=== PATIENT | female | born 1945 | race Caucasian/White ===

== ENCOUNTER 2020-10-19 08:30 | Emergency (ER) | payer MEDICARE, SELFPAY | END 2020-10-19 08:40 | disposition left against medical advice (07) | LOC: ANHED 09:00 | DX: Z53.21 Procedure and treatment not carried out due to patient leaving prior to being seen by health care provider (principal) | CPT/HCPCS: 99199 ==

== ENCOUNTER 2021-03-13 09:00 | Outpatient (RCR) | payer MEDICARE, SELFPAY ==
--- NOTE | 2020-12-21 09:19 | PTOPEVAL ---
PHYSICAL THERAPY EVALUATION AND PLAN OF CARE 12-21-20 Thank you for referring Arminda Vincent to [facility], for the diagnosis of lumbar pain and radiculopathy. Mrs. Vincent is scheduled to be seen for therapy? 2 x/week for 4 weeks, treatment plan includes aquatic exercises. Please review, sign, date and return this plan of care [facility]. I agree with and certify that the following plan of care is medically necessary. Referring Physician Date Attending Provider: ROXIE Orozco *PT Outpatient Evaluation 12/21/20 08:10 NIKKI (Rec: 12/21/20 09:19 NIKKI [id number]) Assessment Status Evaluation Outpatient Past Medical History Past Medical History Source of Past Medical History Patient Neurological History Hx Neurological Disorders No Significant History Cardiovascular History Hx Cardiac Disorders No Significant History Respiratory History Hx Respiratory Disorders No Significant History Gastrointestinal History Hx Other Gastrointestinal Disorders Yes: irritation of stomach due to pain meds Genitourinary History Hx Other Genitourinary Disorders Yes: urinary incontinence Musculoskeletal History Hx Arthritis Yes: all over- most joints sore and tender Hx Back Pain Yes: chronic back pain Hx Orthopedic Surgery Yes: B TKR Endocrine History Hx Endocrine Disorders No Significant History HEENT History Hx HEENT Disorders No Significant History Other History Hx Other Medical Conditions Yes: have had COVID vaccine Evaluation Information Problem Diagnosis low back pain, radicular Onset September 25, 2020 Subjective Information history of chronic back pain, Query Text:As Reported By Patient/ but in September started more on L Family side, into butt and L foot numb and worse than usually is ; 3 steroid injections since September,have helped pain; pain has decreased since September; doing some light stretching exercises at home: on back: trunk rot, piriformis stretch, knee/chest stretch; Diagnostic Tests MRI For This Problem Yes: bulging disc L 4-5; Previous Treatments Previous Treatments For This Problem no recent PT for back Prior Level of Function Activity Level (Last 3 Months) Occupation retired Hand Dominance Right Activity of Daily Living Ability Independent Indoor/Home Mobility Independent Community Mobility Independent Stairs Ability Independent Functional Cognition (Planning, Shopping Independent , Taking Medications) Cooking Yes Mara
--- NOTE | 2021-01-17 11:46 | PTOPEVAL ---
PHYSICAL THERAPY REEVALUATION AND UPDATED PLAN OF CARE 01-17-21 Refer to the clinical summary below, for her status today, compared to the initial evaluation. The goals were partially achieved. Continue PT 2x/week for 4 weeks, with treatments on land and in the water. Thank you for referring Arminda Vincent to [facility]. Please review, sign, date and return this updated plan of care [facility]. I agree with and certify that the following plan of care is medically necessary. Referring Physician Date Attending Provider: Sherry Roman, [employer] COURTESY CLERK-BC Document 01/17/21 11:00 NIKKI (Rec: 01/17/21 11:46 NIKKI [id number]) Assessment Status Reevaluation Subjective Information Arminda reports: doing a Query Text:As Reported By Patient/ little better in that can move Family better; activity is about the same, but feel better; like water exercises, not as sore after them; Pain Assessment Timing of Pain Assessment Timing of Pain Assessment Assessment Pain Scale Pain Scale Used Numeric (1 - 10) Self Report Pain Assessment Bilateral Back Reported Pain Level 3 Radicular Pain Location L LE-top toes little numb;no thigh or calf pain/numbness; Pain Frequency Chronic,Continuous Other Pain Description grabbing pain; Lowest Pain Intensity 2 Greatest Pain Intensity 4 Pain Aggravating Factors Sitting,Weight Bearing/ Standing Other Pain Aggravating Factors sit 30 min/walk 10-15 min; Pain Behaviors Anxious,Grimacing,Guarding Pain Score Pain Score 3: Self Report Additional Pain Score Comments Oswestrt self assessment functional activity score of 54% limitation reported sleeping tolerance- awaken 0-3x/night and walking tolerance 10-15 minutes; Interventions Used Interventions Used By Clinicians Education,Exercise Pain Relief Interventions Used By Ice,Inactivity/Rest,Lying Patient Supine Other Alleviating Interventions taking celebrex- think it helps Cervical and Lumbar ROM Lumbar ROM Lumbar Comments standing trunk ROM: rotation to R increase R lumbar pain/ rotation L no increase pain; supine R LE: hip flexion- increase little more back pain and ER- increase pain in lateral hip and back supine L LE: hip flexion- no
--- NOTE | 2021-02-14 09:47 | PTOPEVAL ---
PHYSICAL THERAPY REEVALUATION AND UPDATED PLAN OF CARE 02-14-21 Refer to the clinical summary below for her status today, compared to the last reeval. PT is to continue treatment 0-2x/week for 4 weeks. She will be out of town for one week of this time frame. Thank you for referring Arminda Vincent to [facility].? Please review, sign, date and return this updated plan of care [facility]. I agree with and certify that the following plan of care is medically necessary. Referring Physician Date Attending Provider: Sherry Roman APRN- Document 02/14/21 08:55 NIKKI (Rec: 02/14/21 09:47 NIKKI [id number]) Assessment Status Re-evaluation Subjective Information Arminda reports: is doing better; Query Text:As Reported By Patient/ electrical stim really has Family helped her pain; is doing home exercises, wants to be able to walk and able to do more, is cautious with lifting and moving- protecting her back and do not want to hurt it again and wants to continue therapy; Pain Assessment Timing of Pain Assessment Timing of Pain Assessment Assessment Pain Scale Pain Scale Used Numeric (1 - 10) Self Report Pain Assessment Bilateral Back Reported Pain Level 2 Pain Description Dull Radicular Pain Location R and L lateral hips; no leg pain Pain Frequency Chronic,Continuous Other Pain Description dull pain that is always there ; if do too much, gets to be sharp pain Lowest Pain Intensity 2 Greatest Pain Intensity 3 Pain Aggravating Factors Exercise/Activity,Walking, Weight Bearing/Standing Other Pain Aggravating Factors do not vacuum or lift Pain Score Pain Score 2: Self Report Additional Pain Score Comments Oswestry self assessment functional score % limitation reported walking-standing tolerance 10-15 minutes/ with sleeping awaken 0-3 x/night due to pain; home exercises are easier to do--stronger and not hurt as much to do them; discussed home TENS Interventions Used Interventions Used By Clinicians Education,Electrical Stimulation Pain Relief Interventions Used By Ice,Inactivity/Rest,Medication Patient ,Position Change Other Alleviating Interventions take advil, Cervical and Lumbar ROM
--- NOTE | 2021-03-13 09:50 | PTOPEVAL ---
PHYSICAL THERAPY DISCHARGE 03-13-21 Refer to the clinical summary below, for her status today, compared to the last reevaluation. The goals were partially achieved. Discharge PT services. She is to continue with her home exercises. Thank you for referring Arminda Vincent to [facility].? Please review, sign, date and return this Discharge [facility]. I agree with and certify that the following plan of care is medically necessary. Referring Physician Date Attending Provider: Sherry Roman, RAJAN- Document 03/13/21 09:05 NIKKI (Rec: 03/13/21 09:50 NIKKI [id number]) PT Discharge Subjective Information Mrs. Vincent reports: back is Query Text:As Reported By Patient/ still bothering her if do too Family much it hurts; am able to walk farther before it hurts, 5-10 minutes then hurts; been doing exercises and watching posture and avoiding stooping over; sees pain dr next week; Pain Assessment Timing of Pain Assessment Timing of Pain Assessment Assessment Pain Scale Pain Scale Used Numeric (1 - 10) Self Report Pain Assessment Bilateral Back Reported Pain Level 2 Pain Description Dull,Sharp,Tightness Pain Frequency Chronic,Continuous Other Pain Description aggravating constant hurting; R lumbar- sacral area Lowest Pain Intensity 2 Greatest Pain Intensity 3 Pain Score Pain Score 2: Self Report Additional Pain Score Comments Oswestry self assessment functional score of 48% limitation in activity have a home TENS unit, have not used lately, said it is not very strong--discussed may need a new battery; reinforced activity/rest balance for pain control--pt understands and is doing, but frustrated that she has to stop and has pain with activity; has been doing home and some outside tasks; Interventions Used Interventions Used By Clinicians Education Pain Relief Interventions Used By Ice,Inactivity/Rest,Medication Patient ,Position Change Other Alleviating Interventions take advil only PRN; sit and rest; Lower Extremity Range of Motion General Lower Extremity Range of Motion Gross Lower Extremity Range of Motion supine R and L hip flexion, IR Comments and ER without an increase in
== END 2021-03-13 15:39 | disposition home or self-care (01) ==
LOC: ANHPT 09:00
PROVIDERS: Visit Provider Nurse Practitioner Adult Health
DX: M54.16 Radiculopathy, lumbar region (principal)
CPT/HCPCS: 97014; 97110; 97113; 97140; 97161; G0283

== ENCOUNTER → 2021-04-06 10:08 | Outpatient (CLI) | payer MEDICARE, SELFPAY ==
--- NOTE | ~2021-04-06 | MM_ITS ---
EXAMINATION: MM screening fili BI w kayy HISTORY: Screening mammogram TECHNIQUE: Craniocaudal and mediolateral oblique 3-D tomosynthesis images were obtained and synthetic 2-D images were generated. CAD analysis was submitted and interpreted. COMPARISON: 07/05/2019, 05/12/2017, 04/09/2016 bilateral digital screening mammogram examinations BREAST PARENCHYMAL COMPOSITION: The breasts are almost entirely fatty. FINDINGS: Chronic stable bilateral intramammary lymph nodes. There is no evidence of suspicious mass, calcification, or architectural distortion to suggest malignancy in either breast. There has been no suspicious interval change. IMPRESSION: 1. No mammographic evidence of malignancy. 2. Recommend routine screening mammography in one year. BI-RADS Category 2: Benign finding(s). Reviewed, dictated and finalized at location A.
== END ==
PROVIDERS: Visit Provider Obstetrics & Gynecology Gynecology
DX: Z12.31 Encounter for screening mammogram for malignant neoplasm of breast (principal)
CPT/HCPCS: 77063; 77067

== ENCOUNTER 2021-11-02 08:26 | Outpatient (CLI) | payer MEDICARE, SELFPAY | END 2021-11-02 08:27 | disposition home or self-care (01) | LOC: ANHSURGERY 08:29 | PROVIDERS: Visit Provider Obstetrics & Gynecology Gynecology | DX: Z01.818 Encounter for other preprocedural examination (principal) | CPT/HCPCS: 36415; 85014; 85018; 86850; 86900; 86901 ==

== ENCOUNTER 2021-11-12 00:52 | Day surgery (SDC) | payer MEDICARE, SELFPAY ==
[2021-11-01 13:08] VITALS: BMI 35.2
--- NOTE | 2021-11-01 13:20 | PC.NURSE ---
Report to the Outpatient Waiting Room, entrance under the green pavilion located off [facility], at time _1030_ on date _11/12/21_. OR Time: _0830_. - You and your visitor will be asked a series of questions to screen for COVID 19 for your protection. - A mask is required within the hospital. One visitor will be allowed to accompany the patient into the hospital. Patients visitor will be instructed to remain with patient at all times or leave the building. We will allow the visitor to come back to the postoperative area when patient is ready. Preoperative COVID Testing Requirements: none Patients may have clear liquids (water, carbonated beverages, clear teas, apple juice) until 3 hours prior to surgery 11117 am) with a maximum of 20 ounces. - No food from midnight until time of surgery Take the following medications with a SIP of water the morning of surgery: _WELLBUTRIN_ Medications to discontinue _ADVIL PER DR. NEVES'S INSTRUCTIONS_ Medications to discontinue per ANESTHESIA - _ALL VITAMINS 3 DAYS PRIOR TO SURGERY, Date to take last dose_11/08/21_ Please no make-up, nail welsh, hairspray, perfume, deodorant, or body powder the day of surgery. No jewelry (including any body piercings) or valuables the day of surgery, leave them at home. Please take a shower or bath the night before, or the morning of, surgery with an antibacterial soap. Wear comfortable, loose fitting clothing. Children are encouraged to wear pajamas. - Jewelry must be removed prior to entering the operating room. Rings and piercings that are not removed may be cut off. - The hospital will not accept responsibility for valuables. - Please leave all valuables, including medications, at home the day of surgery. If you are going home after surgery, a licensed delivery driver assistant must drive you home. - NO public transportation without another adult. - We recommend that an adult stay with you for 24 hours following discharge. - We also recommend that you do not drive, make important decision, drink alcoholic beverages, or take any drugs that were not prescribed by your health care provider for at least 24 hours after your discharge time. Follow any additional instructions given to you from your surgeon. Telephone instructions given to __PT and asked if any additional questions and then verbalized understanding. Patient advised to call surgeon office or pre surgery nurse liaisonADILENE [phone] if any additional questions.
[2021-11-12] VITALS (13 sets, daily range): BP systolic 115–139; BP diastolic 60–91; PULSE 70–78; RESP 12–20; TEMP 36.3–37.1; O2SAT 97–100
--- NOTE | 2021-11-12 06:45 | P.PNAN_ITS ---
Anes - Initial Pre Proc Eval Procedure: Operation Date: 11/12/21 08:30 Proposed Procedures p Anterior Vaginal Repair - Brook Segura MD Date/Time: 11/12/21 06:45 Surgeon: Brook Segura MD Pre Op Diagnosis: cystocele Patient Data Age: 76 Gender: F Height: 1.63 m Weight: 93.18 kg Allergies Allergy/AdvReac Type Severity Reaction Status Date / Time No Known Allergies Allergy Verified 11/01/21 13:03 Home Medications Medication Instructions Recorded Confirmed Type Colace 1 cap DAILY PRN 11/01/21 11/01/21 History bupropion HCl [Wellbutrin XL] 150 mg PO QAM 11/01/21 11/01/21 History calcium carbonate-vitamin D3 1 tablet PO QAM 11/01/21 11/01/21 History [Calcium + D] ergocalciferol (vitamin D2) 1,250 mcg DAILY 11/01/21 11/01/21 History fexofenadine [Jazmin Allergy] 180 mg PO DAILY PRN 11/01/21 11/01/21 History ibuprofen [Advil] 200 mg PO BID PRN 11/01/21 11/01/21 History pantoprazole 40 mg PO DAILY PRN 11/01/21 11/01/21 History Patient hx anesthesia problems: none Family hx anesthesia problems: none Results Review: All pre-operative results and documents have been reviewed as part of the pre-operative evaluation. [facility] Past Medical History Medical History (Updated 11/09/21 @ 15:03 by Avi Wills DO) Chronic back pain GERD (gastroesophageal reflux disease) Osteoarthritis Surgical History Surgical History (Updated 11/09/21 @ 15:03 by Avi Wills DO) History of cholecystectomy History of hysterectomy History of umbilical hernia repair Social History Social History Smoking status: Never smoker Second hand tobacco smoke exposure: No Alcohol intake: never Substance use: never Substance use type: does not use Living arrangements: with family Additional living arrangements comments: PT LIVES WITH SPOUSE - [facility]EL [facility] care concerns: No Anes - Eval Final PreProcedure Day of Procedure 11/12/21 06:45 Patient weight: obese Heart: regular rate and rhythm Lungs: clear to auscultation and normal air movement Airway: Mallampati scale class III Neurological: alert and oriented Last oral intake: >/= 8 hours ASA classification: II Emergent: no Anesthetic plan: proceed Anesthesia type and monitoring: general LMA and standard monitoring Results Review: All pre-operative results and documents have been reviewed as part of the pre-operative evaluation. Informed Consent: The patient's anesthetic plan and its attendant risks and benefits were discussed with the patient/family/POA. Questions were solicited and answers provided to the satisfaction of the patient/family/POA.
[2021-11-12] MEDS: ACETAMINOPHEN 500 MG TABLET 1000 MG PO (06:49)
[2021-11-12] MEDS: KETOROLAC 15 MG/ML VIAL (*BKC) IV PUSH (06:50)
[2021-11-12] MEDS: LACTATED RINGERS 1,000 ML 30 ML IV CONT (06:50)
--- NOTE | 2021-11-12 07:05 | WPDHPUPDATE1 ---
History and Physical Update Update Date/Time: 11/12/21 07:05 History and Physical has been reviewed, including an updated exam of the patient. There are NO changes in the patient's condition. Risks, benefits, and alternatives have been discussed and questions answered. Patient agrees to proceed with procedure.
--- NOTE | 2021-11-12 07:05 | PM.HPGS ---
History of Present Illness History of Present Illness Consent: Risks, benefits, and alternatives have been discussed and questions answered. Patient agrees to proceed with procedure. Chief complaint: cystocele Narrative: Arminda Vincent is a 76 year old female with symptomatic cystocele. Patient initially tried a pessary of 2 different styles but they would not remain in place. Patient underwent urodynamics which revealed no genuine stress incontinence therefore the patient wishes to proceed with anterior vaginal repair for her cystocele. Risks of infection, bleeding, injury to internal organs (bladder and ureters), anesthesia, and DVT were reviewed. It was discussed that even though supported urodynamics did not reveal incontinence, surgery could reveal stress incontinence. Patient does have overactive bladder and has done well for several years on [facility]. Patient voices understanding and agrees to proceed with the surgery. Patient did receive medical clearance from her primary physician. Review of Systems Gastrointestinal: Gastrointestinal: Reports heartburn Genitourinary: Genitourinary: Reports vaginal dryness Musculoskeletal: Musculoskeletal: Reports back pain PMFSH Past Medical History Medical History (Updated 11/12/21 @ 07:12 by Brook Segura MD) Chronic back pain GERD (gastroesophageal reflux disease) Osteoarthritis Surgical History Surgical History (Updated 11/12/21 @ 07:11 by Brook Segura MD) History of cholecystectomy And repair of umbilical hernia History of hysterectomy Total vaginal hysterectomy 1991 secondary to fibroids History of total bilateral knee replacement The right in 2012 and the left in 2016 History of umbilical hernia repair Social History Social History Smoking status: Never smoker Second hand tobacco smoke exposure: No Alcohol intake: never Substance use: never Substance use type: does not use Living arrangements: with family Additional living arrangements comments: PT LIVES WITH SPOUSE - [facility] Spiritual care concerns: No Meds Home Medications and Allergies Home Medications Medication Instructions Recorded Confirmed Type Colace 1 cap DAILY PRN 11/01/21 11/01/21 History bupropion HCl [Wellbutrin XL] 150 mg PO QAM 11/01/21 11/01/21 History calcium carbonate-vitamin D3 1 tablet PO QAM 11/01/21 11/01/21 History [Calcium + D] ergocalciferol (vitamin D2) 1,250 mcg DAILY 11/01/21 11/01/21 History fexofenadine [Jazmin Allergy] 180 mg PO DAILY PRN 11/01/21 11/01/21 History ibuprofen [Advil] 200 mg PO BID PRN 11/01/21 11/01/21 History pantoprazole 40 mg PO DAILY PRN 11/01/21 11/01/21 History Allergies Allergy/AdvReac Type Severity Reaction Status Date / Time No Known Allergies Allergy Verified 11/01/21 13:03 Exam Const: General: healthy appearing and alert Orientation/consciousness: patient oriented x3 Resp: Effort & Inspection: normal respiratory effort Auscultation: clear to auscultation bilaterally Cardio: Rate: regular rate Rhythm: regular rhythm GI: GI Palp: Yes Soft to palpation, No Tenderness to palpation present (GI) and No Palpable mass present : External Female Exam: normal external appearance Speculum Exam - Vagina: normal vaginal discharge and other (Third-degree cystocele) Speculum Exam - Cervix: Cervix absent Bimanual exam- vagina & uterus: uterus absent Bimanual Exam- Adnexa, other: normal adnexae and No adnexal tenderness Neuro: General: patient oriented x3 Assessment and Plan Assessment and plan (1) Cystocele: Status: Acute Assessment and Plan: Plan is to proceed with anterior vaginal repair
--- NOTE | 2021-11-12 07:17 | WPDHPUPDATE1 ---
History and Physical Update Update Date/Time: 11/12/21 07:17 History and Physical has been reviewed, including an updated exam of the patient. There are NO changes in the patient's condition. Risks, benefits, and alternatives have been discussed and questions answered. Patient agrees to proceed with procedure.
[2021-11-12] MEDS: ceFAZolin 2 GM/D5W 50 ML 2 GM/50 ML BAG IVPB (07:25)
[2021-11-12] MEDS: LIDO 1%/EPINEPHRINE 1:100,000 50 ML VIAL 10 ML INFILTRATE (07:25)
--- NOTE | 2021-11-12 08:21 | W.PM.PROC2 ---
Procedure Note - Detailed Date of Procedure 11/12/21 Pre-op Diagnosis cystocele Post-op Diagnosis Same Procedure Performed Anterior vaginal repair Surgeon Brook Segura MD Anesthesia General Findings 3rd degree cystocele Description of Procedure The patient was taken to the operating room and placed under anesthesia in the dorsal lithotomy position. She was prepped and draped in the usual sterile fashion. The short weighted speculum was placed posteriorly. The base of the cystocele was grasped at 5 and 7:00 with Allis clamps. The intervening tissue was incised with a scalpel. The midline vaginal tissue is injected with 1% lidocaine with epinephrine. The midline vaginal tissue was dissected off the cystocele using sharp and blunt dissection. The edges of the vaginal mucosa are grasped with Allis clamps as the mucosa is incised. Once the apex was reached to a single clamp was placed in the midline. The lateral vaginal mucosa was dissected off the cystocele using sharp and blunt dissection. The cystocele was reduced using 0 Ethibond horizontal mattress sutures in an interrupted fashion. Once the cystocele was reduced, the excess vaginal mucosa is excised using Metzenbaum scissors. The vaginal mucosa was then closed using 0 Vicryl in a running locked fashion. Vaginal packing coated with Premarin cream was then placed. Francis catheter was left in place. The patient is awakened from anesthesia and taken to recovery in stable condition. Sponge, needle, and instrument counts are correct per the OR staff. Estimated Blood Loss 25 Drains Yes (Francis catheter) Packing Yes (Vaginal) Pathology None sent Complications No immediate complications Condition Stable Disposition PACU
[2021-11-12] MEDS: DEXTROSE 5%/LACTATED RINGERS 1,000 ML 125 ML IV CONT (09:54)
--- NOTE | 2021-11-12 10:52 | ADMGEN ---
0945-This patient, Arminda Vincent, was admitted to OB 2nd Floor Room 289-00. Patient/family oriented to hospital policies and general routines including ID bracelet, bed and alarms, visiting hours, pain management, procedures, bathroom and other care routines, personal items, smoking policy, room service/diet, and visiting hours. Information on how to activate the Rapid Response Team has been discussed. Patient/Family are encouraged to report perceived risks to care and to ask questions if they do not understand what they are told or what they should do.
[2021-11-12] MEDS: IBUPROFEN 600 MG TABLET PO ×2 (14:32→21:20)
[2021-11-13] MEDS: HYDROcodone/acetaminophen (*CRX) 5-325 MG TABLET 1 TAB PO (01:00)
[2021-11-13 04:30] VITALS: BP 103/51; PULSE 73; RESP 16; TEMP 36.9; O2SAT 98
--- NOTE | 2021-11-13 07:21 | PM.GYNPNOP ---
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 Post-Op Subjective Date/time seen: 11/13/21 07:21 Subjective: patient reports feeling better, patient has no complaints and pain is well controlled Exam Narrative: abdomen soft, nt 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 SUPERVISOR - PN: Obj Data Vital Signs Vital Signs: Vital Signs - 24 hr 11/12/21 08:24 11/12/21 08:30 11/12/21 08:45 Temperature 97.4 F L Pulse Rate 78 70 76 Respiratory Rate 20 13 13 Blood Pressure 133/79 134/70 116/91 H Pulse Oximetry 100 100 100 11/12/21 09:00 11/12/21 09:15 11/12/21 09:25 Temperature Pulse Rate 75 73 72 Respiratory Rate 12 15 15 Blood Pressure 127/72 139/74 135/72 Pulse Oximetry 98 97 100 11/12/21 10:00 11/12/21 11:28 11/12/21 14:44 Temperature 97.3 F L Pulse Rate 72 72 74 Respiratory Rate 18 18 18 Blood Pressure 135/67 Pulse Oximetry 98 98 99 11/12/21 14:46 11/12/21 19:15 11/12/21 23:15 Temperature 98.4 F 98.1 F 98.8 F Pulse Rate 74 73 75 Respiratory Rate 18 16 16 Blood Pressure 124/62 115/60 118/60 Pulse Oximetry 99 97 97 11/13/21 04:30 Temperature 98.4 F Pulse Rate 73 Respiratory Rate 16 Blood Pressure 103/51 L Pulse Oximetry 98 Intake/Output Intake/Output: Intake & Output 11/10/21 11/11/21 11/12/21 11/13/21 23:59 23:59 23:59 23:59 Intake Total 2807 Output Total 3226 900 Balance -418 -900 Meds/Results Medications: Active Medications Generic Name Dose Route Start Last Admin Trade Name Freq PRN Reason Stop Dose Admin Hydrocodone Bitart/Acetaminophen 1 tab 11/12/21 09:26 11/13/21 01:00 Hydrocodone/Acetaminophen (*Crx) 5-325 Mg Tablet PO 1 tab Q3H PRN Administration Pain Rated 5 or Less Hydrocodone Bitart/Acetaminophen 1 tab 11/12/21 09:26 Hydrocodone/Acetaminophen (*Crx) 10-325 Mg Tablet PO Q3H PRN Pain Rated 6 or Greater Bupropion HCl 150 mg 11/12/21 10:00 11/12/21 09:58 Bupropion Hcl Xl (24 Hr) 150 Mg Tabcr PO Not Given QAM BRUCE Docusate Sodium 1 mg 11/12/21 09:36 Docusate Sodium 100 Mg Capsule BY MOUTH DAILY PRN Constipation Ergocalciferol 50,000 unit 11/12/21 10:00 11/12/21 14:27 Ergocalciferol 50,000 Unit Capsule BY MOUTH Not Given Mo@0900 BRUCE Dextrose/Lactated Ringer's 1,000 mls @ 125 mls/hr 11/12/21 09:26 11/13/21 04:32 Dextrose 5%/Lactated Ringers IV CONT Not Given .Q8H BRUCE Ibuprofen 600 mg 11/12/21 09:26 11/12/21 21:20 Ibuprofen 600 Mg Tablet PO 600 mg Q6H PRN Administration Cramping Ketorolac Tromethamine 30 mg 11/12/21 09:26 Ketorolac 30 Mg/Ml Vial (*Bkc) IV PUSH 11/17/21 09:25 Q6H PRN Pain Rated 4-6 Loratadine 180 mg 11/12/21 09:37 Loratadine 10 Mg Tablet PO DAILY PRN CONJESTION Naloxone HCl 0.1 mg 11/12/21 09:26 Naloxone Hcl 0.4 Mg/Ml Vial IV PUSH Q2M PRN Respiratory rate less than 10 Ondansetron HCl 4 mg 11/12/21 09:26 Ondansetron Inj 4 Mg/2 Ml Vial IV PUSH Q6H PRN Nausea And Vomiting Pantoprazole Sodium 40 mg 11/12/21 10:00 Pantoprazole 40 Mg Tablet PO DAILY PRN Acid Reflux Simethicone 80 mg 11/12/21 09:26 Simethicone 80 Mg Tab.Chew PO Q2H PRN Gas
--- NOTE | 2021-11-13 07:22 | PM.DS ---
DS: Admitting Diagnosis Discharge Date 11/13/21 Admitting Diagnosis cystocele DS: Discharge Diagnosis Discharge Diagnosis (1) Cystocele: Status: Acute Assessment and Plan: s/p anterior vaginal repair DS: Summary Hospital Course Reason for hospitalization: post op care Hospital Course: Patient tolerating diet, voiding, and ambulating well. DC home. Status at Discharge Functional status at discharge: independent ambulation Overall status at discharge: patient is progressing back to baseline Time Spent with Patient Time attestation: Total time spent providing and/or coordinating discharge services: Discharge Plan Discharge Patient Disposition: Home, Self-Care Discharge Instructions: pelvic rest Stand Alone Forms: General Discharge Instructions Follow-up/Referrals: Brook Segura MD [Physician] - Discharge Medications: Continued bupropion HCl [Wellbutrin XL] 150 mg tablet extended release 24 hr 150 mg PO QAM RF: 0 calcium carbonate-vitamin D3 600 mg-5 mcg (200 unit) Tablet 1 tablet PO QAM RF: 0 ibuprofen 100 mg Tablet 200 mg PO BID PRN (Reason: Pain) RF: 0 pantoprazole 40 mg tablet,delayed release (DR/EC) 40 mg PO DAILY PRN (Reason: Acid Reflux) RF: 0 ergocalciferol (vitamin D2) 1,250 mcg (50,000 unit) capsule 1,250 mcg DAILY RF: 0 Colace 1 cap DAILY PRN (Reason: Constipation) RF: 0 fexofenadine [Jazmin Allergy] 180 mg Tablet 180 mg PO DAILY PRN (Reason: CONJESTION) RF: 0
[2021-11-13 08:15] VITALS: BP 117/74; PULSE 76; RESP 16; TEMP 36.6; O2SAT 97
[2021-11-13] MEDS: PANTOPRAZOLE 40 MG TABLET PO (08:28)
[2021-11-13] MEDS: buPROPion HCL XL (24 HR) 150 MG TABCR PO (08:28)
[2021-11-13] MEDS: IBUPROFEN 600 MG TABLET PO (08:30)
--- NOTE | 2021-11-13 09:43 | WPDANESPN ---
Anes - Prog Note Post-Op Date/Time: 11/13/21 09:43 Cardiovascular status: normal Respiratory status: normal Airway patency: baseline Post-Op hydration status: normal Vital Signs: Last Vital Signs Temp 98 F 11/13/21 08:15 Pulse 76 11/13/21 08:15 Resp 16 11/13/21 08:15 BP 117/74 11/13/21 08:15 Pulse Ox 97 11/13/21 08:15 Pain Score (VAS): 2 I/O: Intake & Output 11/12/21 11/13/21 11/13/21 23:59 07:59 15:59 Intake Total 1187 Output Total 825 1150 Balance 362 -1150 Post-procedural complaints: none Patient Feedback: Patient satisfied with anesthetic care.
[2021-11-13] MEDS: ACETAMINOPHEN 325 MG TABLET PO ×2 (12:44→12:45)
== END 2021-11-13 12:55 | disposition home or self-care (01) ==
LOC: ANHSURGERY 06:12 → ANHOB2 09:30
PROVIDERS: Visit Provider Obstetrics & Gynecology Gynecology
PROC: (CPT 57260; principal; 2021-11-12 08:30)
DX: N81.10 Cystocele, unspecified (principal); K21.9 Gastro-esophageal reflux disease without esophagitis; E66.9 Obesity, unspecified; Z68.36 Body mass index [BMI] 36.0-36.9, adult
CPT/HCPCS: 57240; 99199; A9270; J0690; J1100; J1885; J2405; J2704; J3010; J7120; J7121

== ENCOUNTER → 2022-02-28 09:40 | Outpatient (CLI) | payer MEDICARE, SELFPAY ==
--- NOTE | ~2022-02-28 | MR_ITS ---
EXAMINATION: MR thoracic spine wo con DATE: 02/28/2022 10:19 INDICATION: Back pain, thoracic. TECHNIQUE: Magnetic resonance imaging (MRI) of the thoracic spine was performed without intravenous c ontrast. Sagittal localizer T1-weighted FSE of the cervical spine was obtained. Thoracic spine sequen ibeth included sagittal T2-weighted FSE, sagittal T1-weighted FSE, sagittal T2-weighted FS FSE, and axi al T2-weighted FSE. COMPARISON: Chest 2 views 07/13/2018 FINDINGS: There is kyphosis of thoracic spine. There is 3 degrees dextrocurvature of thoracic spine. There is mild chronic anterior wedging of T5 and T6 vertebral bodies. There is mildly decreased disc height from T2-T3 through T4-T5, moderately decreased disc height at T5-T6, severely decreased disc h eight at T6-T7, moderately decreased disc height at T7-T8, and mildly decreased disc height at T8-T9 and T9-T10. There is multilevel facet joint osteoarthritis. On the right, there is mild neural forami nal stenosis from T1-T2 through T5-T6. On the left, there is mild neural foraminal stenosis from T1-T 2 through T4-T5 and at T10-T11. At T7-T8, there is a right central extrusion with mild central canal stenosis. The spinal cord signal intensity is normal. IMPRESSION: 1. Severe mid thoracic spondylosis. 2. Thoracic kyphosis. Reviewed, dictated and finalized at location A.
== END ==
PROVIDERS: Visit Provider Nurse Practitioner Family
DX: M40.204 Unspecified kyphosis, thoracic region (principal); M47.814 Spondylosis without myelopathy or radiculopathy, thoracic region; M48.04 Spinal stenosis, thoracic region; M48.54XA Collapsed vertebra, not elsewhere classified, thoracic region, initial encounter for fracture
CPT/HCPCS: 72146

== ENCOUNTER → 2022-05-20 14:07 | Outpatient (CLI) | payer MEDICARE, SELFPAY ==
--- NOTE | ~2022-05-20 | DEXA_ITS ---
Bone Density Report Name: INDRA GODFREY Age: 77 Sex: Female Ethnicity: White Date of : 1945 Indication: postmenopausal; screening for osteoporosis; height loss; hysterectomy; Referring Provider: PETR NEVES Study: Bone densitometry was performed. Exam Date: May 20, 2022 Accession number: [id number] Bone Density: Region BMD T-score Z-score Classification AP Spine (L1-L4) 1.050 0.0 2.5 Normal Femoral Neck (Left) 0.843 -0.1 2.1 Normal Total Hip (Left) 0.992 0.4 2.3 Normal Femoral Neck (Right) 0.759 -0.8 1.3 Normal Total Hip (Right) 0.939 0.0 1.8 Normal Total Hip Mean 0.966 0.2 2.1 Normal World Health Organization criteria for BMD impression classify patients as: Normal (T-score at or above -1.0), Osteopenia (T-score between -1.0 and -2.5), or Osteoporosis (T-score at or below -2.5). 10-year Fracture Risk: FRAX not reported because: All T-scores for Spine Total, Hip Total, Femoral Neck at or above -1.0 Previous Exams: Region Exam Age BMD T-score BMD Change BMD Change Date g/cm2 vs Baseline vs Previous AP Spine(L1-L4) 05/20/2022 77 1.050 0.0 0.025* -0.012 02/09/2019 73 1.063 0.1 0.037* 0.047 10/13/2013 68 1.016 -0.3 -0.009 -0.009 06/08/2010 65 1.025 -0.2 Total Hip(Left) 05/20/2022 77 0.992 0.4 -0.041* -0.029* 02/09/2019 73 1.021 0.6 -0.012 -0.021 10/13/2013 68 1.042 0.8 0.009 0.009 06/08/2010 65 1.033 0.7 Total Hip(Right) 05/20/2022 77 0.939 0.0 -0.024 0.023 02/09/2019 73 0.916 -0.2 -0.046* -0.051 10/13/2013 68 0.968 0.2 0.005 0.005 06/08/2010 65 0.963 0.2 *Denotes significance at 95% confidence level, LSC for AP Spine = 0.022 g/cm2, LSC for Total Hip = 0.027 g/cm2 Clinical Information Provided by Patient: Has used the following medications: Vitamin D, Calcium Has the following medical conditions: Hysterectomy Patient maximum height was 64 Menopause Age: 43 No regular weight bearing exercise Onset of menses at age 15 Number of children 2 Impression: The patient has normal bone mass. The BMD for the Total Hip(Left) decreased, changing by -0.029 since the last DXA exam. Discussion: BONE DENSITY IS ABOVE THE MINIMUM DESIRABLE LEVEL AT ALL SKELETAL SITES TESTED. This patient?s bone mineral d
== END ==
PROVIDERS: Visit Provider Obstetrics & Gynecology Gynecology
DX: Z78.0 Asymptomatic menopausal state (principal)
CPT/HCPCS: 77080

== ENCOUNTER 2022-05-30 09:28 | Outpatient (CLI) | payer MEDICARE, SELFPAY ==
--- NOTE | 2022-05-30 | ECG_ITS ---
Measurements Intervals [place] Rate: 68 P: 43 MA: 169 QRS: -48 QRSD: 122 T: 16 QT: 379 QTc: 405 Interpretive Statements SINUS RHYTHM LEFT ANTERIOR FASCICULAR BLOCK VOLTAGE CRITERIA FOR LVH BORDERLINE T WAVE ABNORMALITY- ANTEROLATERAL LEADS ABNORMAL ECG NO PREVIOUS ECG AVAILABLE FOR COMPARISON Electronically Signed On 05-30-2022 11:05:42 CDT by Wilmer Patel D.O.
[2022-05-30 09:56] LABS: Appearance Urine Clear (Clear); Bilirubin Urine Negative (Negative); Blood Urine 1+ (Negative); Color Urine Yellow (Yellow); Glucose Urine UA Negative (Negative); Ketones Urine Negative (Negative); Leukocyte Esterase Ur 1+ LEU/UL (Negative); Nitrate Urine Negative (Negative); Protein Urine Negative (Negative); Specific Grav Ur 1.015 (1.001-1.035); Urobilinogen Urine 0.2 mg/dL (<2.0)
[2022-05-30 10:20] LABS: Basophils Absolute Auto 0.1 K/mm3 (0.0-0.1); Eosinophils Absolute Auto 0.2 K/mm3 (0-0.3); Eosinophils Percent Auto 3.2 % (0-4.4); Hemoglobin 13.2 g/dL (12.0-15.0); Immature Granulocyte Absolute 0.02 K/mm3 (0.00-0.031); Immature Granulocyte Percent A 0.3 % (0-0.5); Lymphocytes Absolute Auto 1.79 K/mm3 (0.9-3.2); Lymphocytes Percent Auto 25.8 % (18.3-44.2); Mean Corpuscular HGB Conc 32.2 g/dl (32-36); Mean Corpuscular Hemoglobin 30.9 pg (26-34); Mean Platelet Volume 8.7 fl (7.4-10.4); Monocytes Absolute Auto 0.6 K/mm3 (0.1-0.6); Monocytes Percent Auto 9.1 % (2.6-8.5); Neutrophils Absolute Auto 4.2 K/mm3 (1.3-6.7); Neutrophils Percent Auto 60.6 % (45.5-73.1); Platelet Count Result 235 k/mm3 (150-375); Red Blood Count 4.27 M/mm3 (4.2-5.4); Red Cell Distribution Width 13.1 % (11.5-14.5); White Blood Count 6.9 K/mm3 (4.5-10.0)
[2022-05-30 10:37] LABS: Bacteria Urine Trace /hpf; Hyaline Casts Urine 30-49 /lpf; Mucus Urine Rare /lpf; Squamous Epithelial Cell Urine Many /hpf (Few)
[2022-05-30 10:42] LABS: Anion Gap 13 mmol/L (8-16); Blood Urea Nitrogen 16 mg/dL (7-17); CRP < 0.5 mg/dL (<1.0); Calcium 8.9 mg/dL (8.4-10.2); Carbon Dioxide 26 mmol/L (22-30); Chloride 100 mmol/L (98-107); Estimated Glomerular Filt Rate 40; Glucose 90 mg/dL (65-110); Potassium 4.2 mmol/L (3.4-5.0); Sodium 139 mmol/L (137-145)
[2022-05-30 10:42] LABS: Add Urine Microscopic? YES
[2022-05-30 12:16] LABS: Erythrocyte Sedimentation Rate 22 mm/hr (0-20)
== END 2022-05-30 09:29 | disposition home or self-care (01) ==
LOC: ANHLAB 09:31
PROVIDERS: Visit Provider Nurse Practitioner Family
DX: Z01.818 Encounter for other preprocedural examination (principal); R94.31 Abnormal electrocardiogram [ECG] [EKG]
CPT/HCPCS: 36415; 80048; 81001; 85025; 85652; 86140; 87077; 87086; 87088; 93005

== ENCOUNTER 2022-09-12 09:13 | Outpatient (CLI) | payer MEDICARE, SELFPAY ==
--- NOTE | ~2022-09-12 | MM_ITS ---
EXAMINATION: MM screening fili BI w kayy HISTORY: Screening mammogram TECHNIQUE: Craniocaudal and mediolateral oblique 3-D tomosynthesis images were obtained and synthetic 2-D images were generated. CAD analysis was submitted and interpreted. COMPARISON: 04/06/2021, 07/05/2019, 05/12/2017 bilateral screening mammogram examinations BREAST PARENCHYMAL COMPOSITION: The breasts are almost entirely fatty. FINDINGS: Benign calcifications of each breast. There is no evidence of suspicious mass, calcificatio n, or architectural distortion to suggest malignancy in either breast. There has been no suspicious i nterval change. IMPRESSION: 1. No mammographic evidence of malignancy. 2. Recommend routine screening mammography in one year. BI-RADS Category 2: Benign finding(s). Reviewed, dictated and finalized at location A. [employer]ING [employer]ER
== END 2022-09-12 09:14 | disposition home or self-care (01) ==
PROVIDERS: Visit Provider Obstetrics & Gynecology Gynecology
DX: Z12.31 Encounter for screening mammogram for malignant neoplasm of breast (principal)
CPT/HCPCS: 77063; 77067

== ENCOUNTER 2022-12-03 10:07 | Outpatient (CLI) | payer MEDICARE, SELFPAY ==
--- NOTE | ~2022-12-03 | XR_ITS ---
EXAMINATION: XR lg joint inject/asp w image DATE: 12/03/2022 11:12 INDICATION: Left shoulder osteoarthritis with chronic left shoulder pain TECHNIQUE: A time-out was performed to verify the patient's name, date of , and procedure to b e performed. The procedure including the risks, benefits, and alternatives was discussed with the pat ient. Risks discussed included bleeding and infection. The patient understood the risks and agreed to proceed. The skin overlying the rotator cuff interval of the left glenohumeral joint was prepped an d draped in usual sterile fashion. Anesthetic was administered with 1% lidocaine subcutaneously. A 22 G needle was advanced under fluoroscopic guidance into the joint. Injection of 1 mL of Omnipaque 240 confirmed intra-articular position of the needle. Subsequently, injectate consisting of 4 mL of a 3:1 mixture of 1% lidocaine: 80 mg/mL Depo-Medrol for a total dosage of 80 mg Depo-Medrol was insti lled. Washout of contrast was seen confirming intra-articular administration. The needle was removed and the entry site was cleaned and dressed. There were no immediate complications. Fluoroscopy expos ure time was 0.1 minutes. The total number of images was 2. FINDINGS: Real-time fluoroscopy demonstrates the needle in the left glenohumeral joint. Patient's prema n prior to procedure:01/04. Patient's pain following the procedure: 08/06. IMPRESSION: 1. Successful left glenohumeral joint injection of local anesthetic and steroid with decrease in the patient's presenting pain. Reviewed, dictated and finalized at location A.
== END 2022-12-03 10:08 | disposition home or self-care (01) ==
PROVIDERS: Visit Provider Orthopaedic Surgery
DX: M19.112 Post-traumatic osteoarthritis, left shoulder (principal)
CPT/HCPCS: 20610; 77002; J1040; Q9966

== ENCOUNTER 2023-02-06 10:05 | Emergency (ER) | payer MEDICARE, SELFPAY ==
--- NOTE | ~2023-02-06 | XR_ITS ---
Clinical Indication: Shortness of breath PA and lateral views of the chest: Comparison: 07/13/2018 Findings: The lungs are clear, without evidence of focal consolidation or pleural effusion. Cardiome diastinal silhouette is within normal limits. Intrathecal catheter present. Impression: Clear lungs. Reviewed, dictated and finalized at location . Impression: Clear lungs.
--- NOTE | 2023-02-06 10:09 | ED.URI ---
HPI - URI/Sore Throat General Chief Complaint: Upper Respiratory Infection Stated Complaint: Sinus Time Seen by Provider: 02/06/23 10:09 Source: patient Mode of arrival: ambulatory Limitations: no limitations History of Present Illness HPI Narrative: Patient is a 77-year-old female who presents with over a week of sinus congestion and productive cough. Patient states mucus has been green/yellow. Also think she has conjunctivitis has her right eye has been irritated and matted shut in the morning. Patient has only taken Mucinex. Patient reports seasonal allergies but has not had any allergy medicine. Patient denies any fever, chills, ear pain, nausea, vomiting, diarrhea. Patient concern for pneumonia. Related Data Home Medications Medication Instructions Recorded Confirmed Colace 1 cap DAILY PRN Constipation 11/01/21 02/06/23 bupropion HCl 150 mg 24 hr tablet, 150 mg PO QAM 11/01/21 02/06/23 extended release (Wellbutrin XL) calcium carbonate 600 mg-vitamin 1 tablet PO QAM 11/01/21 02/06/23 D3 5 mcg (200 unit) tablet ergocalciferol (vitamin D2) 1,250 1,250 mcg DAILY 11/01/21 02/06/23 mcg (50,000 unit) capsule fexofenadine 180 mg tablet 180 mg PO DAILY PRN CONJESTION 11/01/21 02/06/23 (Jazmin Allergy) ibuprofen 100 mg tablet 200 mg PO BID PRN Pain 11/01/21 02/06/23 pantoprazole 40 mg tablet,delayed 40 mg PO DAILY PRN Acid Reflux 11/01/21 02/06/23 release Allergies Allergy/AdvReac Type Severity Reaction Status Date / Time No Known Allergies Allergy Verified 02/06/23 10:21 Review of Systems Review of Systems: All systems reviewed & are unremarkable except as noted in HPI and below Constitutional: Constitutional: Denies body ache(s), Denies chills, Denies fatigue, Denies fever(s), Denies headache(s), Denies malaise and Denies weakness Eyes: Eyes: Denies blurry vision, Denies itchy eyes and Denies loss of vision ENT: Denies otalgia, Denies headache(s), Reports nasal congestion, Denies sinus pain and Denies sore throat Cardiovascular: Cardiovascular: Denies chest pain, Denies irregular heart rhythm and Denies dyspnea Respiratory: Respiratory: Reports chest congestion, Reports cough and Denies dyspnea Gastrointestinal: Gastrointestinal: Denies abdominal pain, Denies diarrhea, Denies nausea and Denies vomiting Musculoskeletal: Musculoskeletal: Denies back pain, Denies myalgias and Denies arthralgias Integumentary/Breasts: Skin/Breast: Denies pruritus and Denies rash Neurologic: Denies headache(s), Denies loss of vision and Denies weakness Psychiatric: Psychiatric: Reports no additional psychiatric complaints Endocrine: Endocrine: Denies fatigue Allergic/Immunologic: Allergic/Immunologic: Denies itchy eyes PMFSH Past Medical History Medical History (Updated 02/06/23 @ 10:53 by Elena Espinoza APRN) Chronic back pain GERD (gastroesophageal reflux disease) Osteoarthritis Surgical History Surgical History (Updated 11/12/21 @ 07:11 by Brook Segura MD) History of cholecystectomy And repair of umbilical hernia History of hysterectomy Total vaginal hysterectomy 1991 secondary to fibroids History of total bilateral knee replacement The right in 2012 and the left in 2016 History of umbilical hernia repair Social History Social History Smoking status: Never smoker Second hand tobacco smoke exposure: No Alcohol intake: never Substance use: never Substance use type: does not use Living arrangements: with family Additional living arrangements comments: PT LIVES WITH SPOUSE - [facility] Spiritual care concerns: No Comments At time of signature, agree with nursing past medical, surgical, social and family history. There is no relevant family history pertinent to the presenting complaint. Exam Const: General: cooperative, healthy appearing, comfortable, no acute distress and well nourished Nutritional Appearance: well nourished Orientation/consciousness: patient or
[2023-02-06 10:25] VITALS: BP 102/57; PULSE 78; RESP 18; TEMP 36.6; O2SAT 97
== END 2023-02-06 10:58 | disposition home or self-care (01) ==
PROVIDERS: Emergency Provider Nurse Practitioner Family
DX: J06.9 Acute upper respiratory infection, unspecified (principal); R05.9 Cough, unspecified; H10.31 Unspecified acute conjunctivitis, right eye; K21.9 Gastro-esophageal reflux disease without esophagitis; M19.90 Unspecified osteoarthritis, unspecified site; Z96.653 Presence of artificial knee joint, bilateral
CPT/HCPCS: 71046; 87426; 87804; 99213; C9803; G0463

== ENCOUNTER 2024-02-03 13:30 | Outpatient (CLI) | payer MEDICARE, SELFPAY ==
--- NOTE | ~2024-02-03 | MM_ITS ---
EXAMINATION: MM screening fili BI w kayy HISTORY: Screening TECHNIQUE: Craniocaudal and mediolateral oblique 3-D tomosynthesis images were obtained and synthetic 2-D images were generated. CAD analysis was submitted and interpreted. COMPARISON: Comparison to multiple prior studies sequentially, with oldest reviewed study dated 11/14. BREAST PARENCHYMAL COMPOSITION: Not Dense: Breast are almost entirely fatty. FINDINGS: There is no evidence of suspicious mass, calcification, or architectural distortion to sugg est malignancy in either breast. There has been no suspicious interval change. IMPRESSION: 1. No mammographic evidence of malignancy. 2. Recommend routine screening mammography in one year. BI-RADS Category 1: Negative Reviewed, dictated and finalized at location B.
== END 2024-02-03 13:31 ==
PROVIDERS: PCP Obstetrics & Gynecology Gynecology; Visit Provider Obstetrics & Gynecology Gynecology
DX: Z12.31 Encounter for screening mammogram for malignant neoplasm of breast (principal)
CPT/HCPCS: 77063; 77067